=== PATIENT | male | born 1950 | race Caucasian/White ===

== ENCOUNTER 2017-07-11 10:41 | Emergency (ER) | payer MEDICARE, OTHER ==
[2017-07-11 13:20] LABS: ADD MAN DIFF? NO
[2017-07-11 13:27] LABS: BASOPHILS % 0.2 % (0.0-2.0); EOSINOPHILS # 0.1 10^3/ul (0.0-0.5); EOSINOPHILS % 1.1 % (0.0-7.0); HEMATOCRIT 42.9 % (42.0-52.0); HEMOGLOBIN 14.3 g/dl (14.0-18.0); LYMPHOCYTES # 1.5 10^3/ul (0.8-2.9); LYMPHOCYTES % 15.1 % (15.0-51.0); MEAN CORPUSCULAR HEMOGLOBIN 30.7 pg (29.0-33.0); MEAN CORPUSCULAR HGB CONC 33.3 g/dl (32.0-37.0); MEAN CORPUSCULAR VOLUME 92.1 fl (82.0-101.0); MEAN PLATELET VOLUME 10.7 fl (7.4-10.4); MONOCYTE # 0.6 10^3/ul (0.3-0.9); MONOCYTES % 5.6 % (0.0-11.0); NEUTROPHILS % 77.7 % (39.0-77.0); PLATELET COUNT 229 10^3/UL (140-415); RED BLOOD COUNT 4.66 10^6/ul (4.70-6.10); RED CELL DISTRIBUTION WIDTH 13.9 % (11.5-14.5)
[2017-07-11 13:27] LABS: WHITE BLOOD COUNT 10.2 10^3/ul (4.8-10.8)
[2017-07-11 13:45] LABS: ALANINE AMINOTRANSFERASE 27 IU/L (13-69); ALBUMIN 4.8 g/dl (3.3-4.9); ALBUMIN/GLOBULIN RATIO 1.17; ALKALINE PHOSPHATASE 103 IU/L (42-121); ANION GAP 15 (8-16); ASPARTATE AMINO TRANSFERASE 28 IU/L (15-46); BILIRUBIN,INDIRECT 0.7 mg/dl (0-1.1); BILIRUBIN,TOTAL 0.7 mg/dl (0.2-1.3); BLOOD UREA NITROGEN 12 mg/dl (7-20); CALCIUM 9.8 mg/dl (8.4-10.2); CARBON DIOXIDE 28 mmol/L (21-31); CHLORIDE 104 mmol/L (97-110); GLUCOSE 93 mg/dl (70-220); SODIUM 143 mmol/L (135-144); TOTAL PROTEIN 8.9 g/dl (6.1-8.1)
[2017-07-11 13:51] LABS: ACETAMINOPHEN < 10.0 ug/ml (10.0-30.0)
[2017-07-11 13:52] LABS: SALICYLATE < 1.0 mg/dl (5.0-30.0)
[2017-07-11] MEDS: HYDROCODONE/APAP (10/325) TAB PO ×2 (13:56→13:57)
[2017-07-11] MEDS: morphine 10 MG INJ IV (14:19)
[2017-07-11] MEDS: SOD CHLORIDE 0.9% 1,000 ML IV (14:19)
[2017-07-11] MEDS: ONDANSETRON 4 MG INJ IV (14:19)
[2017-07-11 14:55] LABS: PROTIME 13.3 Sec (11.9-14.9)
[2017-07-11 14:56] LABS: PARTIAL THROMBOPLASTIN TIME 27.3 Sec (25.0-35.0)
[2017-07-11] MEDS: PROPOFOL 200 MG INJ IV (15:00)
[2017-07-11] MEDS ORDERED: PROPOFOL 100 ML IV (15:00)
== END 2017-07-11 16:36 | disposition home or self-care (01) ==
LOC: FTE 10:41 → E/R 16:36
DX: S42.251A Displaced fracture of greater tuberosity of right humerus, initial encounter for closed fracture (principal); S43.004A Unspecified dislocation of right shoulder joint, initial encounter; F17.210 Nicotine dependence, cigarettes, uncomplicated; R07.9 Chest pain, unspecified; W18.39XA Other fall on same level, initial encounter; Y92.9 Unspecified place or not applicable
CPT/HCPCS: 23605; 36415; 71045; 73030; 73060; 80053; 80306; 85025; 85610; 85730; 94770; 96374; 96375; 99284-25

== ENCOUNTER 2018-04-15 12:38 | Emergency (ER) | payer OTHER ==
[2018-04-15] MEDS: HYDROCODONE/APAP (10/325) TAB PO (13:44)
== END 2018-04-15 15:50 | disposition home or self-care (01) ==
LOC: FTE 15:50
DX: S83.91XA Sprain of unspecified site of right knee, initial encounter (principal); J44.9 Chronic obstructive pulmonary disease, unspecified; V03.10XA Pedestrian on foot injured in collision with car, pick-up truck or van in traffic accident, initial encounter; Z87.891 Personal history of nicotine dependence
CPT/HCPCS: 73510; 73562; 99283-25